=== PATIENT | male | born 1985 | race Caucasian/White ===

== ENCOUNTER 2019-01-16 05:01 | Emergency (ER) | payer MEDICAID ==
[~2019-01-16] VITALS: Ht 177.8 cm; Wt 74.0 kg
[2019-01-16 05:10] VITALS: BP 114/77
--- NOTE | 2019-01-16 05:20 | NUR ---
PT PRESENTED WITH C/O SPIDER BITES, STATED BROWN RECLUSE SPIDER BITES ON THE RIGHT POST LEG. PT SITTING ON [facility], PROVIDED PT WITH SANDIE HIGGINBOTHAM AT BEDSIDE FOR EVAL
[2019-01-16] MEDS ORDERED: NEOSPORIN OINT. PKT 1 PACKET ONE (05:38)
[2019-01-16] MEDS ORDERED: LIDOCAINE-MPF 1%, 5ML ONE (06:24)
--- NOTE | 2019-01-16 06:30 | NUR ---
PT NOT IN ROOM, LEFT WITHOUT D/C PAPERS
== END 2019-01-16 06:37 | disposition home or self-care (01) ==
LOC: ED 06:31
DX: L03.115 Cellulitis of right lower limb (principal); L02.415 Cutaneous abscess of right lower limb
CPT/HCPCS: 10060; 99283

== ENCOUNTER 2019-11-17 17:29 | Emergency (ER) | payer MEDICAID ==
[~2019-11-17] VITALS: Ht 180.3 cm; Wt 67.9 kg
[2019-11-17 17:35] VITALS: BP 131/84
--- NOTE | 2019-11-17 18:13 | NUR ---
FLEXOGRAPHIC PRINTING MACHINIST: PT AMBULATORY TO ROOM FROM LOBBY
--- NOTE | 2019-11-17 19:13 | NUR ---
clinical quality rn: Pt to room from lobby at this time.
--- NOTE | 2019-11-17 19:25 | NUR ---
pt soaking finger in betadine solution and to clean with 4x4 gauze.
[2019-11-17] MEDS ORDERED: LIDOCAINE-MPF 1%, 5ML INFIL ONE (19:30)
[2019-11-17] MEDS ORDERED: LIDOCAINE-MPF 1%, 5ML ONE ×2 (19:58→19:59)
--- NOTE | 2019-11-17 20:10 | NUR ---
DIRECTED PT TO WASH FINGER WITH BETADINE BRUSH WITH WATER. PT IS NOT LISTENING TO DIRECTIONS. PT IS PICKING AT FINGER AND PULLING SKIN OFF. DIRECTED PT TO CLEAN FINGER MULTIPLE TIMES WITHOUT SUCCESS.
[2019-11-17] MEDS ORDERED: CEPHALEXIN 500 MG CAPSULE PO ONE (20:30)
[2019-11-17] MEDS ORDERED: CEPHALEXIN 500 MG CAPSULE ONE (20:45)
[2019-11-17] MEDS ORDERED: NEOSPORIN OINT. PKT 1 PACKET ONE (20:45)
== END 2019-11-17 21:05 | disposition home or self-care (01) ==
LOC: ED 18:00
DX: S62.666B Nondisplaced fracture of distal phalanx of right little finger, initial encounter for open fracture (principal); X58.XXXA Exposure to other specified factors, initial encounter; Y93.89 Activity, other specified; Y92.098 Other place in other non-institutional residence as the place of occurrence of the external cause; Y99.8 Other external cause status
CPT/HCPCS: 12041; 99284

== ENCOUNTER 2019-12-04 16:54 | Emergency (ER) | payer MEDICAID ==
[~2019-12-04] VITALS: Ht 180.3 cm; Wt 68.9 kg
[2019-12-04 17:04] VITALS: BP 119/88
[2019-12-04] MEDS ORDERED: CEFAZOLIN 1,000 MG ONE (17:43)
[2019-12-04] MEDS ORDERED: NEOSPORIN OINT. PKT 1 PACKET ONE (17:44)
[2019-12-04] MEDS ORDERED: CEFAZOLIN 1,000 MG IM ONE (18:00)
== END 2019-12-04 18:13 | disposition home or self-care (01) ==
LOC: ED 17:13
DX: T81.30XA Disruption of wound, unspecified, initial encounter (principal)
CPT/HCPCS: 96372; 99283; J0690

== ENCOUNTER 2020-09-26 01:39 | Emergency (ER) | payer MEDICAID ==
[~2020-09-26] VITALS: Ht 180.3 cm; Wt 69.4 kg
--- NOTE | 2020-09-26 02:10 | NUR ---
Note genaro in ED - 09/26/20 at 0214 by SANDI furniture associate: Patient given discharge instructions and they have confirmed that they understand the instructions. Patient ambulatory with steady gait. NAD, all questions answered appropriately, denies additional needs at this time. No personal belongings left in room after discharge.
--- NOTE | 2020-09-26 02:22 | NUR ---
pt eloped prior to receiving dc paperwork. NIL when called back for dc at this time.
== END 2020-09-26 02:35 | disposition left against medical advice (07) ==
LOC: ED 02:00
DX: A60.01 Herpesviral infection of penis (principal)
CPT/HCPCS: 99283

== ENCOUNTER 2020-09-27 12:22 | Emergency (ER) | payer MEDICAID ==
[~2020-09-27] VITALS: Ht 180.3 cm; Wt 68.5 kg
[2020-09-27 12:55] VITALS: BP 119/79
--- NOTE | 2020-09-27 16:30 | NUR ---
DC INSTRUCTIONS REVIEWED
== END 2020-09-27 16:31 | disposition home or self-care (01) ==
LOC: ED 13:48
DX: A60.01 Herpesviral infection of penis (principal)
CPT/HCPCS: 99283